=== PATIENT | male | born 1960 | race Caucasian/White ===

== ENCOUNTER → 2016-12-25 | Outpatient (CLI) | payer BC | LOC: LAB 11:34 | DX: I10 Essential (primary) hypertension (principal); E78.2 Mixed hyperlipidemia; E11.9 Type 2 diabetes mellitus without complications; Z12.5 Encounter for screening for malignant neoplasm of prostate; N20.0 Calculus of kidney; E66.01 Morbid (severe) obesity due to excess calories ==

== ENCOUNTER → 2017-05-02 | Outpatient (CLI) | payer BC | LOC: LAB 07:53 | DX: I10 Essential (primary) hypertension (principal); E78.2 Mixed hyperlipidemia; E11.9 Type 2 diabetes mellitus without complications ==

== ENCOUNTER 2024-05-02 20:39 | Emergency (ER) | payer MEDICARE ==
[~2024-05-02] VITALS: Ht 162.6 cm; Wt 103.6 kg
[2024-05-02] MEDS ORDERED: OZEMPIC0.25 MG/02 SQ (20:53)
[2024-05-02] MEDS ORDERED: ZYLOPRIM 100MG100 MG PO (20:53)
[2024-05-02] MEDS ORDERED: POTASSIUM CITR10 MEQ PO (20:53)
[2024-05-02] MEDS ORDERED: SIMVASTATIN5 M1 PO (20:54)
[2024-05-02] MEDS ORDERED: ASPIRIN 81M81 MG/TA2 PO (20:55)
[2024-05-02] MEDS ORDERED: CELEBREX50 MG PO (20:55)
[2024-05-02] MEDS ORDERED: METFORMIN HCL500 M2 PO (20:55)
[2024-05-02] MEDS ORDERED: HYDROCHLOROTHIA1 T14 PO (21:22)
[2024-05-02 21:32] LABS: BASO # 0.03 K/mm3 (0.02-0.10); EOS # 0.38 K/mm3 (0.04-0.40); EOS % 3.8 % (0.0-4.0); HEMATOCRIT 31.5 % (42.0-52.0); HEMOGLOBIN 10.8 g/dL (13.5-18.0); LYMPH# 2.01 K/mm3 (1.50-4.00); MEAN CELL VOLUME 92 fl (78-100); MEAN CORPUSCULAR HEMOGLOBIN 32 pg (27-31); MEAN CORPUSCULAR HGB CONC 34 g/dL (33-37); MEAN PLATELET VOLUME 9.2 fl (7.4-10.4); MONO # 0.57 K/mm3 (0.20-0.80); NEU # 7.12 K/mm3 (1.40-6.50); PLATELET COUNT 324 K/mm3 (130-400); RED BLOOD COUNT 3.42 M/mm3 (4.20-5.60); RED CELL DISTRIBUTION WIDTH 12.7 % (11.5-14.5); WHITE BLOOD COUNT 10.1 K/mm3 (4.8-10.8)
[2024-05-02 21:40] LABS: CALCIUM 9.4 mg/dL (8.3-10.5)
[2024-05-02] MEDS ORDERED: NORCO 325 MG-51 TA1 PO (22:10)
[2024-05-02] MEDS ORDERED: Home HYDROcodone/Acetaminophen 5/325 MG #4 TABS/PACK PO ONE (22:15)
[2024-05-02 22:18] VITALS: BP 120/75
== END 2024-05-02 22:20 | disposition home or self-care (01) ==
LOC: ED 20:39
PROVIDERS: Family Medicine
DX: M54.2 Cervicalgia (principal); E11.9 Type 2 diabetes mellitus without complications; D64.9 Anemia, unspecified; N17.9 Acute kidney failure, unspecified; E66.9 Obesity, unspecified; Z68.39 Body mass index [BMI] 39.0-39.9, adult